=== PATIENT | female | born 1995 | race Caucasian/White ===

== ENCOUNTER 2016-11-14 11:02 | Inpatient (IN) | payer OTHER ==
[~2016-11-14] VITALS: Ht 175.3 cm; Wt 93.0 kg
[2016-11-14 12:22] LABS: HCT 35.5 % (37.0-47.0); MCH 31.1 pg (25.0-31.0); MCHC 33.8 g/dL (32.0-36.0); MPV 10.2 fL (6.0-9.5); RBC 3.86 M/uL (4.20-5.40); RDW 14.3 % (11.5-14.0); WBC 11.4 K/uL (4.0-10.5)
[2016-11-14 12:23] LABS: BILIRUBIN NEGATIVE (NEGATIVE); BLOOD NEGATIVE Ery/uL (NEGATIVE); CLARITY CLEAR (CLEAR); COLOR YELLOW (YELLOW); GLUCOSE (U) NORMAL (NORMAL); KETONE (U) NEGATIVE (NEGATIVE); LEUKOCYTES TRACE Leu/uL (NEGATIVE); NITRITE NEGATIVE (NEGATIVE); PROTEIN NEGATIVE (NEGATIVE); SPECIFIC GRAVITY 1.015 (1.001-1.030); UROBILINOGEN 0.2 mg/dL (0.2-1.0); pH 7.5 (5.0-9.0)
[2016-11-15 07:28] LABS: HCT 25.7 % (37.0-47.0); HGB 8.6 g/dl (12.5-16.0); MCHC 33.5 g/dL (32.0-36.0); MCV 92.8 fL (78.0-100.0); MPV 9.9 fL (6.0-9.5); RBC 2.77 M/uL (4.20-5.40); RDW 14.1 % (11.5-14.0); WBC 13.3 K/uL (4.0-10.5)
== END 2016-11-16 18:30 | disposition home or self-care (01) | DRG 775 ==
LOC: FOB 11:02 → FOD 11:02 → FOB 11:40
PROVIDERS: ADMIT Obstetrics & Gynecology
PROC: 4A1HX4Z Monitoring of Products of Conception, Cardiac Electrical Activity, External Approach (ICD-10-PCS; principal; 2016-11-14)
PROC: 10E0XZZ Delivery of Products of Conception, External Approach (ICD-10-PCS; 2016-11-14)
PROC: 0HQ9XZZ Repair Perineum Skin, External Approach (ICD-10-PCS; 2016-11-14)
DX: O99.824 Streptococcus B carrier state complicating childbirth (principal); Z28.3 Underimmunization status; Z3A.38 38 weeks gestation of pregnancy; Z37.0 Single live birth; O70.0 First degree perineal laceration during delivery; O09.33 Supervision of pregnancy with insufficient antenatal care, third trimester; O09.893 Supervision of other high risk pregnancies, third trimester
CPT/HCPCS: 36415; 81003; 90715; J1756; J2210; J2540